=== PATIENT | male | born 1940 | race Caucasian/White ===

== ENCOUNTER 2018-01-10 15:09 | Emergency (ER) | payer MEDICARE, OTHER ==
[2018-01-10] MEDS ORDERED: Sodium Chloride 0.9% 10 ML Syringe FLUSH PRN (15:35)
[2018-01-10] MEDS ORDERED: Albuterol 0.083% 2.5 MG/3 ML Neb Soln NEB ONE (18:09)
[2018-01-10] MEDS ORDERED: Furosemide 40 MG/4 ML VIAL IVPUSH ONE (19:16)
--- NOTE | 2018-01-10 19:53 | EDM.PDOC ---
ED HPI GENERAL MEDICAL PROBLEM - General Chief Complaint: Chest Pain Stated Complaint: SOB Time Seen by Provider: 01/10/18 17:53 Source of Information: Reports: Patient History Limitations: Reports: No Limitations - History of Present Illness INITIAL COMMENTS - FREE TEXT/NARRATIVE: 77-year-old male presents for evaluation and treatment shortness of breath. Has been going on for several months, since he relocated to [place] from [place] in September. States is steadily worsening the last 2 or 3 weeks have been worse. Reports dyspnea on exertion. He also has been experiencing some lower leg edema. No fevers, chills, nausea, vomiting, throat pain, ear pain, chest pain, dizziness, lightheadedness or syncope. He has been wearing compression stockings Which has helped somewhat with the edema. 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 Has been prescribed Atrovent in the past. He has been using this more than normal since he relocated [place] and does not feel that this helping. 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 His primary care providers is also in [place]. He has yet to establish with a new provider since coming to [place]. History of [place]. Has had multiple stents placed and a defibrillator pacemaker placed. Type II diabetic. - Related Data Allergies Allergy/AdvReac Type Severity Reaction Status Date / Time Penicillins Allergy Hives Verified 01/10/18 15:24 Home Meds: Home Meds Albuterol [Ventolin HFA] 1 puff INH Q6H PRN #1 inhaler 01/10/18 [Rx] Aspirin [Halfprin] 81 mg PO ASDIRECTED 01/10/18 [History] Carvedilol [Coreg] 12.5 mg PO BID 01/10/18 [History] Clopidogrel [Plavix] 75 mg PO DAILY 01/10/18 [History] Furosemide [Lasix] 40 mg PO DAILY #7 tablet 01/10/18 [Rx] Insulin Lispro [Humalog] 0 unit SQ ASDIRECTED 01/10/18 [History] Latanoprost/Pf [Latanoprost 0.005% Eye Drop] 1 drop EYEBOTH BEDTIME 01/10/18 [ History] Losartan Potassium 100 mg PO DAILY 01/10/18 [History] Potassium Chloride [K-Tab ER] 20 meq PO DAILY #7 tablet.er 01/10/18 [Rx] Pravastatin Sodium [Pravachol] 40 mg PO DAILY 01/10/18 [History] Spironolactone [Aldactone] 25 mg PO DAILY 01/10/18 [History] Tamsulosin HCl 2 cap PO BEDTIME 01/10/18 [History] Past Medical History HEENT History: Reports: Cataract Cardiovascular History: Reports: Pacemaker, Stents, Other (See Below) Other Cardiovascular History: defib/pacemaker combination. Respiratory History: Reports: Pneumonia, Recurrent Genitourinary History: Reports: Other (See Below) Other Genitourinary History: followed by furnace process plant operator after heart surgeries and kidney damage from CT dye. Musculoskeletal History: Reports: Fracture Endocrine/Metabolic History: Reports: Diabetes, Type II, IDDM Other Endocrine/Metabolic History: has insulin pump. Hematologic History: Reports: Blood Transfusion(s) - Infectious Disease History Infectious Disease History: Reports: Measles, Mumps - Past Surgical History HEENT Surgical History: Reports: Cataract Surgery Cardiovascular Surgical History: Reports: Coronary Artery Bypass, Coronary Artery Stent Other Cardiovascular Surgeries/Procedures: 3 vessel CABG Social & Family History - Tobacco Use Smoking Status *Q: Current Every Day Smoker Years of Tobacco use: 60 Packs/Tins Daily: 0.7 Second Hand Smoke Exposure: Yes - Caffeine Use Caffeine Use: Reports: Coffee, Soda - Alcohol Use Days Per Week of Alcohol Use: 3 Number of Drinks Per Day: 2 Total Drinks Per Week: 6 - Recreational Drug Use Recreational Drug Use: No ED ROS GENERAL - Review of Systems Review Of Systems: See Below Constitutional: Denies: Fever, Chills Respiratory: Reports: Shortness of Breath. Denies: Cough Cardiovascular: Reports: Dyspnea on Exertion, Edema. Denies: Chest Pain, Lightheadedness, Orthopnea, Syncope Neurological: Denies: Dizziness, Syncope ED EXAM, GENERAL - Physical Exam Exam: See Below Exam Limited By: No Limitations General Appearance: Alert, WD/WN, No Apparent Distress Throat/Mouth: Normal Inspection, Normal Lips, Normal Voice, No Airway Compromise Neck: Normal Inspection Respiratory/Chest: No Respiratory Distress, Lungs Clear, Wheezing (slight expiratory). No: Crackles Cardiovascular: Normal Peripheral Pulses, Regular Rate, Rhythm, Systolic Murmur (grade 3 systolic heart murmur) GI/Abdominal: Soft, Non-Tender Extremities: Other (1+ bilteral pitting edema) Neurological: Alert, Oriented, Normal Cognition Psychiatric: Normal Affect, Normal Mood Skin Exam: Warm, Dry, Normal Color EKG INTERPRETATION EKG Date: 01/10/18 Time: 16:55 Rhythm: NSR Rate (Beats/Min): 81 [place]: Normal P-Wave: Present QRS: Normal ST-T: Normal QT: Normal EKG Interpretation Comments: NSRa t 81 bpm. No ischemic changes. No LAD, No LVH. No IVCD. QTc within normal limits at 460. Reviewed by myself and Dr. Cameron. Course - Vital Signs Last Recorded V/S: Last Vital Signs Temp 98.4 F 01/10/18 15:16 Pulse 85 01/10/18 15:16 Resp 22 H 01/10/18 15:16 BP 184/83 H 01/10/18 15:16 Pulse Ox 96 01/10/18 15:16 - Orders/Labs/Meds Labs: Laboratory Tests 01/10/18 01/10/18 01/10/18 Range/Units 15:18 15:18 15:18 WBC 5.74 (4.23-9.07) K/mm3 RBC 5.16 (4.63-6.08) M/mm3 Hgb 15.4 (13.7-17.5) gm/L Hct 45.0 (40.1-51.0) % MCV 87.2 (79.0-92.2) fl MCH 29.8 (25.7-32.2) pg MCHC 34.2 (32.2-35.5) g/dl RDW Std Deviation 45.4 H (35.1-43.9) fL Plt Count 144 L (163-337) K/mm3 MPV 11.7 (9.4-12.3) fl Neut % (Auto) 67.5 (34.0-67.9) % Lymph % (Auto) 25.4 (21.8-53.1) % Nash % (Auto) 5.7 (5.3-12.2) % Eos % (Auto) 1.0 (0.8-7.0) Baso % (Auto) 0.2 (0.1-1.2) % Neut # (Auto) 3.87 (1.78-5.38) K/mm3 Lymph # (Auto) 1.46 (1.32-3.57) K/mm3 Nash # (Auto) 0.33 (0.30-0.82) K/mm3 Eos # (Auto) 0.06 (0.04-0.54) K/mm3 Baso # (Auto) 0.01 (0.01-0.08) K/mm3 PT 10.9 (9.5-12.1) SECONDS INR 1.00 Sodium (136-145) mEq/L Potassium (3.5-5.1) mEq/L Chloride (98-107) mEq/L Carbon Dioxide (21-32) mEq/L Anion Gap (5-15) BUN (7-18) mg/dL Creatinine (0.7-1.3) mg/dL Est Cr Clr Drug Dosing mL/min Estimated GFR (MDRD) (>60) mL/min BUN/Creatinine Ratio (14-18) Glucose (83-115) mg/dL POC Glucose (83-110) mg/dL Calcium (8.5-10.1) mg/dL Total Bilirubin (0.2-1.0) mg/dL AST (15-37) U/L ALT (16-63) U/L Alkaline Phosphatase (46-116) U/L CK-MB (CK-2) 2.4 (0-3.6) ng/ml Troponin I 0.022 (0.00-0.056) ng/mL NT-Pro-B Natriuret Pep (0-450) pg/mL Total Protein (6.4-8.2) g/dl Albumin (3.4-5.0) g/dl Globulin gm/dL Albumin/Globulin Ratio (1-2) 01/10/18 01/10/18 01/10/18 Range/Units 15:18 16:35 18:25 WBC (4.23-9.07) K/mm3 RBC (4.63-6.08) M/mm3 Hgb (13.7-17.5) gm/L Hct (40.1-51.0) % MCV (79.0-92.2) fl MCH (25.7-32.2) pg MCHC (32.2-35.5) g/dl RDW Std Deviation (35.1-43.9) fL Plt Count (163-337) K/mm3 MPV (9.4-12.3) fl Neut % (Auto) (34.0-67.9) % Lymph % (Auto) (21.8-53.1) % Nash % (Auto) (5.3-12.2) % Eos % (Auto) (0.8-7.0) Baso % (Auto) (0.1-1.2) % Neut # (Auto) (1.78-5.38) K/mm3 Lymph # (Auto) (1.32-3.57) K/mm3 Nash # (Auto) (0.30-0.82) K/mm3 Eos # (Auto) (0.04-0.54) K/mm3 Baso # (Auto) (0.01-0.08) K/mm3 PT (9.5-12.1) SECONDS INR Sodium 133 L (136-145) mEq/L Potassium 4.6 (3.5-5.1) mEq/L Chloride 100 (98-107) mEq/L Carbon Dioxide 23 (21-32) mEq/L Anion Gap 14.6 (5-15) BUN 18 (7-18) mg/dL Creatinine 1.1 (0.7-1.3) mg/dL Est Cr Clr Drug Dosing 49.51 mL/min Estimated GFR (MDRD) > 60 (>60) mL/min BUN/Creatinine Ratio 16.4 (14-18) Glucose 153 H (83-115) mg/dL POC Glucose 123 H (83-110) mg/dL Calcium 8.6 (8.5-10.1) mg/dL Total Bilirubin 0.6 (0.2-1.0) mg/dL AST 23 (15-37) U/L ALT 20 (16-63) U/L Alkaline Phosphatase 100 (46-116) U/L CK-MB (CK-2) (0-3.6) ng/ml Troponin I (0.00-0.056) ng/mL NT-Pro-B Natriuret Pep 44751 H (0-450) pg/mL Total Protein 6.8 (6.4-8.2) g/dl Albumin 3.2 L (3.4-5.0) g/dl Globulin 3.6 gm/dL Albumin/Globulin Ratio 0.9 L (1-2) Meds: Medications Discontinued Medications Generic Name Dose Route Start Last Admin Trade Name Kareemq PRN Reason Stop Dose Admin Albuterol 2.5 mg 01/10/18 18:09 01/10/18 18:20 Proventil Neb Soln NEB 01/10/18 18:10 2.5 mg ONETIME ONE Administration Furosemide 40 mg 01/10/18 19:16 01/10/18 19:35 Lasix IVPUSH 01/10/18 19:17 40 mg NOW ONE Administration Sodium Chloride 10 ml 01/10/18 15:35 01/10/18 15:42 Saline Flush FLUSH 10 ml ASDIRECTED PRN Administration Keep Vein Open - Radiology Interpretation Free Text/Narrative:: chest xray shows blunted costophrenic angles. mild congestion. - Re-Assessments/Exams Free Text/Narrative Re-Assessment/Exam: 01/10/18 19:53 Reviewed the labs, ekg and imaging with the patient. Appears to be heart failure. Refused ambulatory pulse ox testing. Patient is anxious to go at this time. Declines any further testing. Will start on lasix with close follow-up in the clinic. He does not want to stay in the hospital. Patient would like an inhaler. Primarily shortness of breath is cardiac related. Will give albuterol as initially he did have a slight expiratory wheeze which cleared after neb treatment in ED. Discharge instructions as documented. Departure - Departure Time of Disposition: 19:52 Disposition: Home, Self-Care 01 Condition: Fair Clinical Impression: Shortness of breath, Heart failure - Discharge Information *PRESCRIPTION DRUG MONITORING PROGRAM REVIEWED*: No *COPY OF PRESCRIPTION DRUG MONITORING REPORT IN PATIENT DELFINA: No Prescriptions: Albuterol [Ventolin HFA] 1 puff INH Q6H PRN #1 inhaler PRN Reason: Shortness Of Breath Furosemide [Lasix] 40 mg PO DAILY #7 tablet Potassium Chloride [K-Tab ER] 20 meq PO DAILY #7 tablet.er Instructions: Shortness of Breath, Adult, [id number], Heart Failure, Easy-to- Read Referrals: PCP,Not In Area [Primary Care Provider] - Selam Joel MD [Physician] - Forms: ED Department Discharge Additional Instructions: Follow-up in the clinic this week for recheck of your symptoms. Lasix 1 tab PO daily, start tomorrow you were given lasix in the ED tonight. Start the potassium 1 tab daily. Lasix will cause you to have low potassium. albuterol 1-2 puffs every 4-6 hours prn shortness of breath. Please return to the ER if your symptoms change or worsen.
--- NOTE | 2018-01-14 08:24 | CR ---
Chest: Portable view of the chest was obtained. Comparison: No prior chest x-ray. Heart size appears at the upper limits of normal. AICD is present. Sternotomy is noted for CABG. Pulmonary vessels are mildly increased. Minimal blunting of the costophrenic angles are noted. Bony structures are grossly intact. Impression: 1. Increased central lung markings. Previous study uncertain if this is due to mild chronic change versus mild acute pulmonary vascular congestion. Chronic change is the most likely etiology. 2. Minimal blunting of the costophrenic angles either due to minimal pleural effusions or chronic pleural thickening. 3. Other incidental findings. Diagnostic code #3
== END 2018-01-10 20:05 | disposition home or self-care (01) ==
LOC: JD.ED 15:09
DX: I50.9 Heart failure, unspecified (principal); F17.210 Nicotine dependence, cigarettes, uncomplicated; I25.2 Old myocardial infarction; E11.9 Type 2 diabetes mellitus without complications; Z79.82 Long term (current) use of aspirin; Z79.4 Long term (current) use of insulin; Z79.899 Other long term (current) drug therapy; Z95.5 Presence of coronary angioplasty implant and graft; Z95.0 Presence of cardiac pacemaker
CPT/HCPCS: 36415; 71045; 80053; 82553; 82962; 83880; 84484; 85025; 85610; 96374; 99285; J1940; J7050

== ENCOUNTER 2018-02-05 05:38 | Emergency (ER) | payer MEDICARE, OTHER ==
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
[2018-02-05] MEDS ORDERED: Iopamidol 755 Mg/ML 100 ML Bottle IVPUSH ONE (08:26)
[2018-02-05] MEDS ORDERED: Sodium Chloride 0.9% 10 ML Syringe FLUSH PRN ×2 (08:26→08:33)
[2018-02-05] MEDS ORDERED: Sodium Chloride 0.9% 100 ML IV SCH (08:30)
[2018-02-05] MEDS ORDERED: Albuterol/Ipratropium 3.0-0.5 MG/3 ML Neb Soln NEB ONE (08:32)
[2018-02-05] MEDS ORDERED: methylPREDNISolone Sodium Succinate 125 MG/2 ML SDV IVPUSH ONE (08:33)
--- NOTE | 2018-02-05 08:42 | CR ---
Chest: Two views of the chest are obtained. Comparison: Prior chest x-ray 01/10/18. Heart size and mediastinum are normal. AICD is seen. Prior sternotomy for CABG is noted. Bony structures appear within normal limits for the patient's age. Lungs show no acute parenchymal change. Lungs are slightly hyperinflated. Impression: 1. Possible emphysematous change. 2. Nothing acute is appreciated. Diagnostic code #2
[2018-02-05] MEDS ORDERED: Sodium Chloride 0.9% 1,000 ML IV SCH (08:45)
--- NOTE | 2018-02-05 09:06 | CT ---
CT chest Technique: Multiple axial sections through the chest were obtained. Intravenous contrast was utilized. Study has been performed as a pulmonary angiogram protocol. Findings: Pulmonary arteries are well-opacified. No filling defects are seen to indicate pulmonary embolism. Atherosclerotic calcification is noted within the thoracic aorta. No mediastinal mass or adenopathy is seen. Prominent coronary artery calcification is noted. Previous sternotomy is seen. Small portion of the visualized upper abdominal structures appear within normal limits. Emphysematous change is noted within both lungs. Slight parenchymal density within the right upper lung is seen posteriorly which is most likely due to small area of scarring. Small pleural-based nodular density is seen within the right lower lung measuring about 1.0 cm. lungs otherwise are clear. Impression: 1. No findings of pulmonary embolism. 2. Emphysematous change. 3. Pleural-based nodular density within the right lower lung. Recommend noncontrast chest CT in 6 months to confirm stability or disappearance. Follow-up study would occur in July,. Diagnostic code #9
== END 2018-02-05 10:00 | disposition home or self-care (01) ==
LOC: JD.ED 05:38
DX: J44.1 Chronic obstructive pulmonary disease with (acute) exacerbation (principal); E87.1 Hypo-osmolality and hyponatremia; F17.210 Nicotine dependence, cigarettes, uncomplicated; E11.9 Type 2 diabetes mellitus without complications; I10 Essential (primary) hypertension; Z88.0 Allergy status to penicillin; Z88.1 Allergy status to other antibiotic agents; Z88.8 Allergy status to other drugs, medicaments and biological substances; Z79.899 Other long term (current) drug therapy; Z79.4 Long term (current) use of insulin
CPT/HCPCS: 36415; 36600; 71046; 71275; 80053; 82803; 83880; 84484; 85007; 85027; 85379; 93005; 94640; 96361; 96374; 99285; J2930; J7030; J7040; J7050; Q9967; J7620-GY